=== PATIENT | female | born 1950 | race Caucasian/White ===

== ENCOUNTER → 2018-08-30 12:24 | Outpatient (CLI) | payer OTHER, MEDICARE, SELFPAY ==
[2018-08-30 13:50] LABS: Appearance Urine UA CLEAR; Bilirubin Urine UA NEGATIVE (NEGATIVE); Color Urine UA YELLOW; Glucose Urine UA NEGATIVE (Normal); Ketones Urine UA NEGATIVE (NEGATIVE); Leukocyte Esterase Urine UA NEGATIVE (NEGATIVE); Nitrite Urine UA NEGATIVE (Negative); Occult Blood Urine UA NEGATIVE (Negative); Protein Urine UA NEGATIVE (Negative); Specific Gravity Urine UA 1.015 (1.000-1.035); Urobilinogen Urine UA 0.2 E.U./dL (0.2); pH Urine UA 7.5 (4.5-8.0)
[2018-08-30 13:52] LABS: Add Manual Diff / Slide Review NO; Basophils Percent Auto 0.5 % (0-2); Eosinophils Percent Auto 2.2 % (2-4); Hematocrit 40.6 % (36-46); Hemoglobin 13.4 g/dL (12.0-16.0); Lymphocytes Percent Auto 36.4 % (25-40); Mean Corpuscular HGB Conc 32.9 % (30-36); Mean Corpuscular Hemoglobin 29.9 PG (26-34); Mean Corpuscular Volume 90.8 fL (80-100); Monocytes Percent Auto 8.8 % (3-14); Neutrophils Absolute Auto 3400 /uL (1500-7000); Neutrophils Percent Auto 52.1 % (50-75); Platelet Count 511 X10^3/uL (150-400); Red Blood Cell Count 4.48 X10^6/uL (4.0-5.2); White Blood Cell Count 6.5 X10^3/uL (4.5-11.0)
[2018-08-30 14:10] LABS: Alanine Aminotransferase 42 IU/L (9-52); Albumin 4.5 g/dL (3.5-5.0); Albumin Globulin Ratio 1.7 (1.0-2.8); Alkaline Phosphatase 85 U/L (38-126); Aspartate Aminotransferase 32 IU/L (14-36); Bilirubin Total 0.4 mg/dL (0.2-1.3); Blood Urea Nitrogen 9 mg/dL (7-17); Calcium 10.3 mg/dL (8.4-10.2); Carbon Dioxide 30 mmol/L (22-32); Chloride 103 mmol/L (98-107); Cholesterol 178 mg/dL (140-199); Estimated Glomerular Filt Rate > 60.0 mL/min (>60); Globulin 2.7 g/dL (1.7-4.1); Glucose 99 mg/dL (80-110); HDL Cholesterol 61 mg/dL (40-60); HEMOLYSIS < 15 (0-50); LDL Cholesterol Calculated 105 mg/dL (<100); Potassium 4.4 mmol/L (3.4-5.1); Sodium 145 mmol/L (137-145); Total Protein 7.2 g/dL (6.3-8.2); Triglycerides 62 mg/dL (35-150)
[2018-08-30 14:39] LABS: Thyroid Stimulating Hormone 0.37 uIU/mL (0.47-4.68)
[2018-08-30 15:55] LABS: Vitamin D 25 Hydroxy (D3) 71.5 ng/mL (30.0-100.0)
== END ==
PROVIDERS: PCP Family Medicine; Visit Provider Family Medicine
DX: G35 Multiple sclerosis (principal); Z51.81 Encounter for therapeutic drug level monitoring; E78.5 Hyperlipidemia, unspecified
CPT/HCPCS: 36415; 80053; 80061; 81003; 82306; 84443; 85025

== ENCOUNTER 2018-10-08 11:09 | Emergency (ER) | payer OTHER, MEDICARE, SELFPAY ==
[2018-10-08 11:22] VITALS: BP 176/90; PULSE 78; RESP 16; TEMP 36.9; O2SAT 100; BMI 34.2
--- NOTE | 2018-10-08 11:23 | DI.RAD.S_ITS ---
PROCEDURE: XR CHEST 1V INDICATIONS: chest pain TECHNIQUE: One view of the chest was acquired. COMPARISON: None. FINDINGS: Surgical changes and devices: None. Lungs and pleura: No pleural effusions or pneumothorax. Lungs are clear. Mediastinum: Mediastinal contours appear normal. Heart size is normal. Bones and chest wall: No suspicious bony lesions. Overlying soft tissues appear unremarkable. IMPRESSION: No acute cardiopulmonary pathology. Dictated by: Juan Jose Riddle M.D. on 10/08/2018 at 11:47 Approved by: Juan Jose Riddle M.D. on 10/08/2018 at 11:53
--- NOTE | 2018-10-08 11:35 | ED_ITS ---
HPI - Arrhythmia/Palpitations General Chief Complaint: Arrhythmia/Palpitations Stated Complaint: IRREGULAR HEART BEAT Time Seen by Provider: 10/08/18 11:30 Source: patient Mode of arrival: ambulatory Limitations: no limitations History of Present Illness HPI narrative: Patient is a 68-year-old female here for evaluation of palpitations. She states that this morning she woke up and felt like her heart was irregular and very fast. She states the symptoms have now resolved. Had palpitations many years ago and had a Holter monitor but she states that was 20 years ago. During her episode today she did not have any chest pain or shortness of breath or lightheadedness and passed out. Did not try anything for symptoms prior to arrival. Related Data Home Medications Medication Instructions Recorded Confirmed ibuprofen 800 mg PO PRN PRN #0 12/17/17 10/08/18 naltrexone 50 mg tablet 3 mg PO Q DAY #0 07/29/18 09/11/18 valacyclovir 500 mg tablet 1,000 mg PO DAILY PRN 07/29/18 10/08/18 doxepin 10 mg PO BEDTIME 10/08/18 10/08/18 gabapentin [Neurontin] 1,600 mg PO BEDTIME 10/08/18 10/08/18 levothyroxine 50 mcg PO DAILY 10/08/18 10/08/18 modafinil 150 mg PO DAILY 10/08/18 10/08/18 Previous Rx's Medication Instructions Recorded liothyronine 25 mcg tablet 12.5 mcg PO BID #90 tab 09/11/18 progesterone micronized 200 mg 200 mg PO EVERY OTHER DAY #45 09/11/18 capsule caplet estradiol 0.0375 mg/24 hr 1 patch TRANSDERMAL 2XW #24 each 09/12/18 semiweekly transdermal patch bupropion HCl XL 150 mg 24 hr 300 mg PO QAM #180 tab 09/16/18 tablet, extended release Allergies Allergy/AdvReac Type Severity Reaction Status Date / Time codeine [CODEINE] AdvReac Unknown INSOMNIA, Verified 10/08/18 11:55 NAUSEA Review of Systems Constitutional Denies fever(s) and Denies headache(s) ENT Ears, Nose, Mouth, and Throat: Denies headache(s) Cardiovascular Denies chest pain, Reports palpitations and Denies dyspnea Respiratory Denies dyspnea Gastrointestinal Gastrointestinal: Denies abdominal pain, Denies nausea and Denies vomiting Musculoskeletal Denies myalgias and Denies arthralgias Integumentary/Breasts Denies rash Neurologic Denies headache(s) Endocrine Reports palpitations Hematologic/Lymphatic Comments: Not on anticoagulation PFSH Family History Father Hypertension Heart attack Heart disease Hyperlipidemia Mother Arthritis Hypertension Brother No problems noted. Grandfather Lung cancer Cancer Grandmother Emphysema lung Grandfather No problems noted. Grandmother Closed head injury Social History Smoking Status: Current every day smoker Tobacco: How many years used: 50 second hand exposure: No alcohol intake: never substance use type: does not use Exam Initial Vital Signs Initial Vital Signs: Vital Signs Temperature 98.4 F 10/08/18 11:22 Pulse Rate 78 10/08/18 11:22 Respiratory Rate 16 10/08/18 11:22 Blood Pressure 176/90 H 10/08/18 11:22 Pulse Oximetry 100 10/08/18 11:22 Const General: cooperative, healthy appearing, comfortable, well developed, well groomed and No acute distress Orientation: alert, awake and oriented x3 HENMT Head: normal to inspection and normocephalic Resp Effort & Inspection: normal respiratory effort Auscultation: clear to auscultation bilaterally Cardio Rate: regular rate Rhythm: regular rhythm Heart Sounds: no murmurs Pulses: radial pulses present GI Inspection: non-distended Palpation: soft, No guarding and No tender Skin Lesions: no lesions Rashes: no rashes Neuro General: alert, awake and oriented x3 Extrem General: normal to inspection and capillary refill normal Psych Appearance: grossly normal and well kempt Course Orders Ordered: ED Orders 10/08/18 11:23 XR chest 1V Stat EKG-12 Lead Stat 10/08/18 11:41 Complete Blood Count AUTO DIFF Stat Comprehensive Metabolic Panel Stat Lipase Stat Partial Thromboplastin Time Stat Prothrombin Time INR Stat Troponin & CK Cardiac Panel Stat Discontinued Medications Aspirin (Aspirin Chew) 324 mg PO NOW ONE Stop: 10/08/18 11:24 Last Admin: 10/08/18 12:14 Dose: Vital Signs - 8 hr 10/08/18 11:22 Temperature 98.4 F Pulse Rate 78 Respiratory Rate 16 Blood Pressure 176/90 H Pulse Oximetry 100 MDM - Arrhythmia/Palpitations Lab Data Attestation: I reviewed the patient's lab results. Result diagrams: 10/08/18 11:41 10/08/18 11:41 Lab Results 10/08/18 10/08/18 10/08/18 Range/Units 11:41 11:41 11:41 WBC 5.7 (4.5-11.0) X10^3/uL RBC 4.37 (4.0-5.2) X10^6/uL Hgb 12.9 (12.0-16.0) g/dL Hct 39.2 (36-46) % MCV 89.5 (80-100) fL MCH 29.6 (26-34) PG MCHC 33.1 (30-36) % RDW 13.2 (11.6-14.8) % Plt Count 481 H (150-400) X10^3/uL Neut % (Auto) 48.4 L (50-75) % Lymph % (Auto) 37.1 (25-40) % Glasscock % (Auto) 9.8 (3-14) % Eos % (Auto) 4.1 H (2-4) % Baso % (Auto) 0.6 (0-2) % Neut # (Auto) 2800 (6908-8269) /uL Lymph # (Auto) 2100 (3031-5362) /uL Glasscock # (Auto) 600 (0-900) /uL Eos # (Auto) 200 (0-450) /uL Baso # (Auto) 0 (0-100) /uL PT 10.9 (10.1-12.7) SECONDS INR 1.0 (0.9-1.3) APTT 35 (26.4-36.2) SECONDS Sodium 139 (137-145) mmol/L Potassium 3.8 (3.4-5.1) mmol/L Chloride 104 (98-107) mmol/L Carbon Dioxide 27 (22-32) mmol/L BUN 11 (7-17) mg/dL Creatinine 0.60 (0.52-1.04) mg/dL Estimated GFR > 60.0 (>60) mL/min BUN/Creatinine Ratio 18.3 (6-22) Glucose 102 (80-110) mg/dL Calcium 9.6 (8.4-10.2) mg/dL Total Bilirubin 0.5 (0.2-1.3) mg/dL AST 30 (14-36) IU/L ALT 36 (9-52) IU/L Alkaline Phosphatase 88 (38-126) U/L Total Creatine Kinase 46 (30-135) U/L CK-MB (CK-2) TNP CK-MB (CK-2) Rel Index TNP Troponin I < 0.012 (0.01-0.034) ng/mL Total Protein 6.8 (6.3-8.2) g/dL Albumin 4.2 (3.5-5.0) g/dL Globulin 2.6 (1.7-4.1) g/dL Albumin/Globulin Ratio 1.6 (1.0-2.8) Lipase 31 (23-300) U/L Imaging Data Chest x-ray: Radiologist's impression: [address] [id number] XRay Report Signed Patient: Patricia Avery [facility]#: [id number] : 1950Acct:[id number] Age/Sex: 68 / FDate of Service: 10/08/18 Loc: ED Accession Number: [id number] Procedure: XR chest 1V Ordering Provider: Jalil Paz D.O. PROCEDURE: XR CHEST 1V INDICATIONS: chest pain TECHNIQUE: One view of the chest was acquired. COMPARISON: None. FINDINGS: Surgical changes and devices: None. Lungs and pleura: No pleural effusions or pneumothorax. Lungs are clear. Mediastinum: Mediastinal contours appear normal. Heart size is normal. Bones and chest wall: No suspicious bony lesions. Overlying soft tissues appear unremarkable. IMPRESSION: No acute cardiopulmonary pathology. Dictated by: Juan Jose Riddle M.D. on 10/08/2018 at 11:47 Approved by: Juan Jose Riddle M.D. on 10/08/2018 at 11:53 ECG Data Attestation: I personally reviewed and interpreted this ECG as follows: Prior ECG tracings: not available for review Interpretation: Sinus rhythm Ventricular rate at 80 Normal QRS Normal QTC No ST T wave changes MDM Narrative Medical decision making narrative: Patient asymptomatic here in the emergency department. No ectopy on the EKG. No ectopy on the conveyor monitor. Electrolytes unremarkable. Discussed palpitations with the patient. Informed her that she needed to contact her primary care doctor to discuss Holter monitor. She was given return precautions. She expressed understanding and agreement with plan. Discharge Plan Departure Patient Disposition: Home Clinical Impression: Palpitations Instructions: DI for Palpitations Activity Restrictions/Additional Instructions: I recommend that you contact your primary care doctor to discuss the indications for a Holter monitor. Return to the emergency department for the symptoms like we discussed. Continue all of your medications as directed Prescriptions: No Action valacyclovir 500 mg tablet 1,000 mg PO DAILY PRN (Reason: herpes) RF: 0 liothyronine [Cytomel] 25 mcg tablet 12.5 mcg PO BID Qty: 90 RF: 1 progesterone micronized 200 mg capsule 200 mg PO EVERY OTHER DAY Qty: 45 RF: 1 ibuprofen 400 MG tablet 800 mg PO PRN PRN (Reason: pain) Qty: 0 RF: 0 naltrexone 50 mg tablet 3 mg PO Q DAY Qty: 0 RF: 0 estradiol [Minivelle] 0.0375 mg/24 hr patch semiweekly 1 patch Transdermal 2XW Qty: 24 RF: 1 bupropion HCl 150 mg tablet extended release 24 hr 300 mg PO QAM Qty: 180 RF: 0 levothyroxine 50 mcg tablet 50 mcg PO DAILY RF: 0 gabapentin [Neurontin] 400 mg capsule 1,600 mg PO BEDTIME RF: 0 doxepin 10 mg capsule 10 mg PO BEDTIME RF: 0 modafinil 100 mg tablet 150 mg PO DAILY RF: 0 Stand Alone Forms: Work Release Note
[2018-10-08 11:45] LABS: Add Manual Diff / Slide Review NO; Basophils Absolute Auto 0 /uL (0-100); Basophils Percent Auto 0.6 % (0-2); Eosinophils Absolute Auto 200 /uL (0-450); Eosinophils Percent Auto 4.1 % (2-4); Hematocrit 39.2 % (36-46); Hemoglobin 12.9 g/dL (12.0-16.0); Lymphocytes Absolute Auto 2100 /uL (1100-4500); Lymphocytes Percent Auto 37.1 % (25-40); Mean Corpuscular HGB Conc 33.1 % (30-36); Mean Corpuscular Hemoglobin 29.6 PG (26-34); Mean Corpuscular Volume 89.5 fL (80-100); Monocytes Absolute Auto 600 /uL (0-900); Monocytes Percent Auto 9.8 % (3-14); Neutrophils Absolute Auto 2800 /uL (1500-7000); Neutrophils Percent Auto 48.4 % (50-75); Platelet Count 481 X10^3/uL (150-400); Red Blood Cell Count 4.37 X10^6/uL (4.0-5.2); Red Cell Distribution Width 13.2 % (11.6-14.8); White Blood Cell Count 5.7 X10^3/uL (4.5-11.0)
[2018-10-08 11:52] LABS: Prothrombin Time 10.9 SECONDS (10.1-12.7)
[2018-10-08 11:55] LABS: PTT Partial Thromboplastin Tim 35 SECONDS (26.4-36.2)
[2018-10-08 11:56] LABS: Alanine Aminotransferase 36 IU/L (9-52); Albumin 4.2 g/dL (3.5-5.0); Albumin Globulin Ratio 1.6 (1.0-2.8); Alkaline Phosphatase 88 U/L (38-126); Aspartate Aminotransferase 30 IU/L (14-36); BUN Creatinine Ratio 18.3 (6-22); Bilirubin Total 0.5 mg/dL (0.2-1.3); Blood Urea Nitrogen 11 mg/dL (7-17); Calcium 9.6 mg/dL (8.4-10.2); Carbon Dioxide 27 mmol/L (22-32); Chloride 104 mmol/L (98-107); Creatine Kinase 46 U/L (30-135); Estimated Glomerular Filt Rate > 60.0 mL/min (>60); Globulin 2.6 g/dL (1.7-4.1); Glucose 102 mg/dL (80-110); HEMOLYSIS < 15 (0-50); Lipase 31 U/L (23-300); Potassium 3.8 mmol/L (3.4-5.1); Sodium 139 mmol/L (137-145); Total Protein 6.8 g/dL (6.3-8.2)
[2018-10-08 12:09] LABS: Troponin I < 0.012 ng/mL (0.01-0.034)
[2018-10-08 13:25] VITALS: BP 125/71; PULSE 77; RESP 18; O2SAT 100
== END 2018-10-08 13:00 | disposition home or self-care (01) ==
PROVIDERS: Emergency Provider Emergency Medicine; PCP Family Medicine
DX: R00.2 Palpitations (principal)
CPT/HCPCS: 36591; 71045; 80053; 82550; 83690; 84484; 85025; 85610; 85730; 93005; 93010; 99283; 99285

== ENCOUNTER → 2018-12-25 09:31 | Outpatient (CLI) | payer OTHER, MEDICARE, SELFPAY ==
--- NOTE | 2019-01-09 08:34 | PM.CARDMON.1 ---
Health Care Law Specialist Report Referral & Results Date Patient Seen: 12/25/18 Requesting provider: Hannah Rich Indication: Palpitations Duration of monitoring (days): 7 Diary information: There were no patient diary entries There were no patient triggered events Data: Minimum heart rate identified was 52 beats per minute at 09:29 on 01/01/2019 Maximum sinus heart rate was 125 beats per minute at 11:27 on 12/26/2018 Maximum overall heart rate was 174 beats per minute at 09:55 on 12/29/2018 during a 15 beat run of SVT Less than 1% of identified beats or either ventricular supraventricular ectopic in origin Patient had 11 runs of a supraventricular tachycardia the longest of which was also the fastest which was the 15 beat run as above Impression: Rare and brief episodes of supraventricular tachycardia as above Otherwise unremarkable coding file clerk over 7 days No reported symptoms to correlate with findings
--- NOTE | 2019-01-09 08:37 | P.HOLT.S_ITS ---
Sizing Sprayer Report Referral & Results Date Patient Seen: 12/25/18 Requesting provider: Hannah Rich Indication: Palpitations Duration of monitoring (days): 7 Diary information: There were no patient diary entries There were no patient triggered events Data: Minimum heart rate identified was 52 beats per minute at 09:29 on 01/01/2019 Maximum sinus heart rate was 125 beats per minute at 11:27 on 12/26/2018 Maximum overall heart rate was 174 beats per minute at 09:55 on 12/29/2018 during a 15 beat run of SVT Less than 1% of identified beats or either ventricular supraventricular ectopic in origin Patient had 11 runs of a supraventricular tachycardia the longest of which was also the fastest which was the 15 beat run as above Impression: Rare and brief episodes of supraventricular tachycardia as above Otherwise unremarkable 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
== END ==
PROVIDERS: PCP Family Medicine; Visit Provider Family Medicine
DX: R00.2 Palpitations (principal)
CPT/HCPCS: 0296T; 0298T

== ENCOUNTER → 2018-12-25 10:17 | Outpatient (CLI) | payer OTHER, MEDICARE, SELFPAY ==
[2018-12-25 12:17] LABS: Free T3, Triiodothyronine Free 3.57 pg/mL (2.77-5.27)
[2018-12-25 12:30] LABS: Thyroid Stimulating Hormone 1.96 uIU/mL (0.47-4.68)
== END ==
PROVIDERS: PCP Family Medicine; Visit Provider Family Medicine
DX: E03.9 Hypothyroidism, unspecified (principal)
CPT/HCPCS: 36415; 84439; 84443; 84481

== ENCOUNTER → 2019-01-15 10:26 | Outpatient (CLI) | payer OTHER, MEDICARE, SELFPAY ==
--- NOTE | 2019-01-15 10:27 | DI.MG.S_ITS ---
BILATERAL DIGITAL SCREENING MAMMOGRAM 3D/2D WITH CAD: 01/15/2019 CLINICAL: Routine screening. Comparison is made to exam dated: 06/23/2015 mammogram - [facility]. There are scattered fibroglandular elements in both breasts. Current study was also evaluated with a Computer Aided Detection (CAD) system. No significant masses, calcifications, or other findings are seen in either breast. There has been no significant interval change. IMPRESSION: NEGATIVE There is no mammographic evidence of malignancy. A 1 year screening mammogram is recommended. This exam was interpreted at Station ID: [id number]. NOTE: For mammograms, a report in lay terms will be sent to the patient. Approximately 15% of breast malignancies will not be visualized mammographically. In the management of a palpable breast mass, a negative mammogram must not discourage biopsy of a clinically suspicious lesion. Electronically Signed By: Odilia petit/stefani:01/15/2019 19:10:46 letter sent: Normal Exam ACR BI-RADS Category 1: Negative [id number]
== END ==
PROVIDERS: PCP Family Medicine; Visit Provider Family Medicine
DX: Z12.31 Encounter for screening mammogram for malignant neoplasm of breast (principal)
CPT/HCPCS: 77063; 77067

== ENCOUNTER → 2019-06-06 13:12 | Outpatient (CLI) | payer OTHER, MEDICARE, SELFPAY ==
[2019-06-06 14:45] LABS: Blood Urea Nitrogen 9 mg/dL (7-17); Calcium 10.3 mg/dL (8.4-10.2); Carbon Dioxide 27 mmol/L (22-32); Chloride 102 mmol/L (98-107); Estimated Glomerular Filt Rate > 60.0 mL/min (>60); Glucose 97 mg/dL (80-110); HEMOLYSIS < 15 (0-50); Potassium 4.6 mmol/L (3.4-5.1); Sodium 138 mmol/L (137-145)
== END ==
PROVIDERS: PCP Family Medicine; Visit Provider Family Medicine
DX: E03.9 Hypothyroidism, unspecified (principal); R53.82 Chronic fatigue, unspecified
CPT/HCPCS: 36415; 80048

== ENCOUNTER → 2019-10-10 14:12 | Outpatient (CLI) | payer OTHER, MEDICARE, SELFPAY ==
[2019-10-10 15:24] LABS: Add Manual Diff / Slide Review NO; Basophils Absolute Auto 0 /uL (0-100); Basophils Percent Auto 0.2 % (0-2); Eosinophils Absolute Auto 200 /uL (0-450); Eosinophils Percent Auto 2.2 % (2-4); Hematocrit 38.7 % (36-46); Lymphocytes Absolute Auto 2800 /uL (1100-4500); Lymphocytes Percent Auto 32.6 % (25-40); Mean Corpuscular HGB Conc 33.5 % (30-36); Mean Corpuscular Hemoglobin 30.4 PG (26-34); Mean Corpuscular Volume 90.9 fL (80-100); Monocytes Absolute Auto 700 /uL (0-900); Monocytes Percent Auto 8.6 % (3-14); Neutrophils Absolute Auto 4900 /uL (1500-7000); Neutrophils Percent Auto 56.4 % (50-75); Platelet Count 490 X10^3/uL (150-400); Red Blood Cell Count 4.26 X10^6/uL (4.0-5.2); White Blood Cell Count 8.7 X10^3/uL (4.5-11.0)
[2019-10-10 15:35] LABS: Alanine Aminotransferase 21 IU/L (<35); Albumin 4.4 g/dL (3.5-5.0); Albumin Globulin Ratio 1.5 (1.0-2.8); Alkaline Phosphatase 87 U/L (38-126); Aspartate Aminotransferase 30 IU/L (14-36); Bilirubin Total 0.5 mg/dL (0.2-1.3); Blood Urea Nitrogen 9 mg/dL (7-17); Calcium 10.3 mg/dL (8.4-10.2); Carbon Dioxide 29 mmol/L (22-32); Chloride 99 mmol/L (98-107); Cholesterol 203 mg/dL (140-199); Estimated Glomerular Filt Rate > 60.0 mL/min (>60); Glucose 99 mg/dL (80-110); HDL Cholesterol 55 mg/dL (40-60); HEMOLYSIS < 15 (0-50); LDL Cholesterol Calculated 127 mg/dL (<100); Potassium 4.6 mmol/L (3.4-5.1); Sodium 137 mmol/L (137-145); Total Protein 7.4 g/dL (6.3-8.2); Triglycerides 107 mg/dL (35-150)
[2019-10-10 16:11] LABS: Free T3, Triiodothyronine Free 3.37 pg/mL (2.77-5.27); Free T4, Direct Thyroxine 1.07 ng/dL (0.78-2.19)
[2019-10-10 16:25] LABS: Thyroid Stimulating Hormone 1.55 uIU/mL (0.47-4.68)
[2019-10-14 15:00] LABS: Thyroid Peroxidase Antibodies 154 IU/mL (< 9)
== END ==
PROVIDERS: PCP Family Medicine; Visit Provider Family Medicine
DX: Z00.00 Encounter for general adult medical examination without abnormal findings (principal); E55.9 Vitamin D deficiency, unspecified; G35 Multiple sclerosis; E03.9 Hypothyroidism, unspecified
CPT/HCPCS: 36415; 80053; 80061; 84439; 84443; 84481; 85025; 86376

== ENCOUNTER → 2020-12-10 10:26 | Outpatient (CLI) | payer OTHER, MEDICARE, SELFPAY ==
[2020-12-10 11:19] LABS: Alanine Aminotransferase 18 IU/L (<35); Albumin 4.3 g/dL (3.5-5.0); Albumin Globulin Ratio 1.5 (1.0-2.8); Alkaline Phosphatase 97 U/L (38-126); Aspartate Aminotransferase 27 IU/L (14-36); BUN Creatinine Ratio 15.6 (6-22); Bilirubin Total 0.2 mg/dL (0.2-1.3); Blood Urea Nitrogen 12 mg/dL (7-17); Calcium 10.3 mg/dL (8.4-10.2); Carbon Dioxide 30 mmol/L (22-32); Chloride 102 mmol/L (98-107); Cholesterol 180 mg/dL (140-199); Estimated Glomerular Filt Rate > 60.0 mL/min (>60); Globulin 2.8 g/dL (1.7-4.1); Glucose 111 mg/dL (80-110); HDL Cholesterol 55 mg/dL (40-60); HEMOLYSIS < 15 (0-50); LDL Cholesterol Calculated 102 mg/dL (<100); Sodium 139 mmol/L (137-145); Total Protein 7.1 g/dL (6.3-8.2); Triglycerides 114 mg/dL (35-150)
[2020-12-10 12:34] LABS: Free T3, Triiodothyronine Free 3.08 pg/mL (2.77-5.27); Free T4, Direct Thyroxine 1.22 ng/dL (0.78-2.19)
[2020-12-10 12:47] LABS: TSH w/ Reflex to FT4 1.75 uIU/mL (0.47-4.68)
[2020-12-11 05:20] LABS: Thyroid Peroxidase Antibodies 225 IU/mL (0-34)
[2020-12-11 15:36] LABS: Anti Thyroglobulin Antibody <1.0 IU/mL (0.0-0.9)
== END ==
PROVIDERS: PCP Family Medicine; Referring Provider Family Medicine; Visit Provider Family Medicine
DX: E03.9 Hypothyroidism, unspecified (principal); E66.9 Obesity, unspecified; E83.52 Hypercalcemia; G35 Multiple sclerosis
CPT/HCPCS: 36415; 80053; 80061; 84439; 84443; 84481; 86376; 86800

== ENCOUNTER → 2020-12-15 16:32 | Outpatient (CLI) | payer OTHER, MEDICARE, SELFPAY ==
[2020-12-15 17:54] LABS: Add Manual Diff / Slide Review NO; Basophils Absolute Auto 100 /uL (0-100); Basophils Percent Auto 0.7 % (0-2); Eosinophils Absolute Auto 200 /uL (0-450); Hematocrit 39.5 % (36-46); Lymphocytes Absolute Auto 2900 /uL (1100-4500); Lymphocytes Percent Auto 29.3 % (25-40); Mean Corpuscular Hemoglobin 29.8 PG (26-34); Mean Corpuscular Volume 90.4 fL (80-100); Monocytes Absolute Auto 900 /uL (0-900); Monocytes Percent Auto 8.8 % (3-14); Neutrophils Absolute Auto 5900 /uL (1500-7000); Neutrophils Percent Auto 59.2 % (50-75); Platelet Count 448 X10^3/uL (150-400); Red Blood Cell Count 4.37 X10^6/uL (4.0-5.2); Red Cell Distribution Width 13.9 % (11.6-14.8)
== END ==
PROVIDERS: PCP Family Medicine; Referring Provider Family Medicine; Visit Provider Family Medicine
DX: E03.9 Hypothyroidism, unspecified (principal); G35 Multiple sclerosis; R53.82 Chronic fatigue, unspecified; Z51.81 Encounter for therapeutic drug level monitoring
CPT/HCPCS: 36415; 85025

== ENCOUNTER → 2020-12-31 16:08 | Outpatient (CLI) | payer OTHER, MEDICARE, SELFPAY ==
[2021-01-01 10:36] LABS: SARS CoV19 IgG Negative (Negative)
== END ==
PROVIDERS: PCP Family Medicine; Referring Provider Family Medicine; Visit Provider Family Medicine
DX: R69 Illness, unspecified (principal)
CPT/HCPCS: 36415; 86769

== ENCOUNTER → 2021-10-25 17:00 | Outpatient (CLI) | payer OTHER, SELFPAY | PROVIDERS: PCP Family Medicine; Referring Provider Family Medicine; Visit Provider Family Medicine | DX: A09 Infectious gastroenteritis and colitis, unspecified (principal) | CPT/HCPCS: 36415; 87207 ==

== ENCOUNTER → 2021-10-26 13:55 | Outpatient (CLI) | payer OTHER, SELFPAY ==
[2021-10-27 08:28] LABS: Fecal Immunochemical Test Negative (Negative)
== END ==
PROVIDERS: PCP Family Medicine; Referring Provider Family Medicine; Visit Provider Family Medicine
DX: A09 Infectious gastroenteritis and colitis, unspecified (principal); Z12.11 Encounter for screening for malignant neoplasm of colon
CPT/HCPCS: 82274; 87177

== ENCOUNTER → 2021-12-12 08:38 | Outpatient (CLI) | payer OTHER, SELFPAY ==
[2021-12-12 09:52] LABS: Add Manual Diff / Slide Review NO; Basophils Absolute Auto 0 /uL (0-100); Basophils Percent Auto 0.4 % (0-2); Eosinophils Absolute Auto 100 /uL (0-450); Eosinophils Percent Auto 1.8 % (2-4); Hematocrit 38.7 % (36-46); Hemoglobin 12.8 g/dL (12.0-16.0); Lymphocytes Absolute Auto 2300 /uL (1100-4500); Lymphocytes Percent Auto 34.3 % (25-40); Mean Corpuscular HGB Conc 33.1 % (30-36); Mean Corpuscular Hemoglobin 30.3 PG (26-34); Mean Corpuscular Volume 91.6 fL (80-100); Monocytes Absolute Auto 700 /uL (0-900); Monocytes Percent Auto 10.1 % (3-14); Neutrophils Absolute Auto 3600 /uL (1500-7000); Neutrophils Percent Auto 53.4 % (50-75); Platelet Count 476 X10^3/uL (150-400); Red Blood Cell Count 4.22 X10^6/uL (4.0-5.2); Red Cell Distribution Width 14.1 % (11.6-14.8); White Blood Cell Count 6.8 X10^3/uL (4.5-11.0)
[2021-12-12 10:14] LABS: Alanine Aminotransferase 20 IU/L (<35); Albumin 4.3 g/dL (3.5-5.0); Albumin Globulin Ratio 1.7 (1.0-2.8); Alkaline Phosphatase 73 U/L (38-126); Aspartate Aminotransferase 33 IU/L (14-36); BUN Creatinine Ratio 11.6 (6-22); Bilirubin Total 0.6 mg/dL (0.2-1.3); Blood Urea Nitrogen 10 mg/dL (7-17); Calcium 10.4 mg/dL (8.4-10.2); Carbon Dioxide 30 mmol/L (22-32); Chloride 105 mmol/L (98-107); Cholesterol 202 mg/dL (140-199); Estimated Glomerular Filt Rate > 60.0 mL/min (>60); Globulin 2.5 g/dL (1.7-4.1); Glucose 106 mg/dL (80-110); HDL Cholesterol 73 mg/dL (40-60); HEMOLYSIS < 15 (0-50); LDL Cholesterol Calculated 111 mg/dL (<100); Potassium 4.5 mmol/L (3.4-5.1); Sodium 139 mmol/L (137-145); Total Protein 6.8 g/dL (6.3-8.2); Triglycerides 90 mg/dL (35-150)
[2021-12-12 10:37] LABS: Free T4, Direct Thyroxine 1.24 ng/dL (0.78-2.19)
[2021-12-12 10:51] LABS: Thyroid Stimulating Hormone 1.35 uIU/mL (0.47-4.68)
[2021-12-12 16:10] LABS: Vitamin D 25 Hydroxy (D3) 90.1 ng/mL (30.0-100.0)
== END ==
PROVIDERS: PCP Family Medicine; Referring Provider Family Medicine; Visit Provider Family Medicine
DX: E03.8 Other specified hypothyroidism (principal); E06.3 Autoimmune thyroiditis; E83.52 Hypercalcemia; R53.82 Chronic fatigue, unspecified; R73.01 Impaired fasting glucose
CPT/HCPCS: 36415; 80053; 80061; 82306; 84439; 84443; 84481; 85025